=== PATIENT | male | born 1990 ===

== ENCOUNTER 2017-02-10 07:48 | Day surgery (SDC) | payer OTHER ==
[2017-02-10 08:33] VITALS: BMI 31.1
[2017-02-10] MEDS ORDERED: Propofol 10 mg/ml Inj (20 ML) ONE ×3 (09:03→09:23)
[2017-02-10] MEDS ORDERED: Lactated Ringer's 500 ML IV SCH (09:15)
[2017-02-10 11:17] VITALS: TEMP 97.8
[2017-02-10 11:19] VITALS: O2SAT 97
[2017-02-10 11:24] VITALS: BP 105/60; PULSE 55; RESP 20
== END 2017-02-10 10:40 | disposition home or self-care (01) ==
LOC: C.ENDO 07:48
PROVIDERS: ATTEND Internal Medicine Gastroenterology
DX: K29.70 Gastritis, unspecified, without bleeding (principal); K29.80 Duodenitis without bleeding; K31.7 Polyp of stomach and duodenum
CPT/HCPCS: 43250; 88305; 88312; 88313; 88342; J2704; J7120